=== PATIENT | male | born 1980 | race Caucasian/White ===

== ENCOUNTER → 2019-01-01 | Outpatient (CLI) | payer MEDICAID ==
--- NOTE | 2019-01-01 18:36 | REP ---
REASON: Pain. There is a fracture involving the base of the 5th metacarpal with palmar angulation. Electronically Signed by Zeferino Escudero DO 01/01/2019 06:59 P
== END ==
LOC: M RAD 17:43
PROVIDERS: ATTEND Physician Assistant Medical
DX: S62.346A Nondisplaced fracture of base of fifth metacarpal bone, right hand, initial encounter for closed fracture (principal); X58.XXXA Exposure to other specified factors, initial encounter; Y92.89 Other specified places as the place of occurrence of the external cause

== ENCOUNTER → 2019-03-07 | Outpatient (REF) | payer OTHER, MEDICAID ==
[2019-03-07 13:34] LABS: BASO # 0.1 10^3/uL (0.0-0.2); BASO % 0.8 % (0.0-1.0); EOS # 0.2 10^3/uL (0.0-0.5); EOS % 2.6 % (0.0-3.0); HEMATOCRIT 49.3 % (42.0-52.0); HEMOGLOBIN 16.6 g/dl (13.5-17.5); LYMPH # 2.5 10^3/uL (1.5-5.0); MEAN CORPUSCULAR HEMOGLOBIN 31.7 pg (27.0-33.0); MEAN CORPUSCULAR HGB CONC 33.7 g/dl (32.0-36.5); MEAN CORPUSCULAR VOLUME 94.1 fl (80.0-96.0); MONO # 0.6 10^3/uL (0.0-0.8); MONO % 8.7 % (0.0-5.0); NEUTROPHILS # 3.3 10^3/uL (1.5-8.5); NEUTROPHILS % 49.9 % (36.0-66.0); PLATELET COUNT, AUTOMATED 218 10^3/uL (150-450); RED BLOOD COUNT 5.24 10^6/uL (4.30-6.10); WHITE BLOOD COUNT 6.6 10^3/uL (4.0-10.0)
[2019-03-07 14:02] LABS: ALBUMIN 3.8 GM/DL (3.2-5.2); ALT/SGPT 23 U/L (12-78); BILIRUBIN,TOTAL 0.3 MG/DL (0.2-1.0); BLOOD UREA NITROGEN 11 MG/DL (7-18); CALCIUM LEVEL 8.9 MG/DL (8.5-10.1); CARBON DIOXIDE LEVEL 28 MEQ/L (21-32); CHLORIDE LEVEL 104 MEQ/L (98-107); CHOLESTEROL LEVEL 161 MG/DL (<200); CHOLESTEROL RISK RATIO 3.096 (<5); CREATININE FOR GFR 1.06 MG/DL (0.70-1.30); FREE T4 1.11 NG/DL (0.76-1.46); GLOMERULAR FILTRATION RATE > 60.0 (>60); GLUCOSE, FASTING 97 MG/DL (70-100); HDL CHOLESTEROL 52 MG/DL (>40); LDL CHOLESTEROL 91 MG/DL (<100); NON-HDL-C 109 MG/DL; POTASSIUM SERUM 4.2 MEQ/L (3.5-5.1); SODIUM LEVEL 139 MEQ/L (136-145); TOTAL 25(OH) VITAMIN D 22.1 NG/ML (30.0-100.0); TOTAL PROTEIN 6.9 GM/DL (6.4-8.2); TRIGLYCERIDES LEVEL 91 MG/DL (<150)
[2019-03-07 15:17] LABS: HEMOGLOBIN A1c 6.1 %
== END ==
LOC: M LAB REF 13:19
PROVIDERS: ATTEND Nurse Practitioner Family
DX: Z00.00 Encounter for general adult medical examination without abnormal findings (principal); Z13.9 Encounter for screening, unspecified; F41.1 Generalized anxiety disorder; F19.11 Other psychoactive substance abuse, in remission; F43.12 Post-traumatic stress disorder, chronic; S62.314D Displaced fracture of base of fourth metacarpal bone, right hand, subsequent encounter for fracture with routine healing

== ENCOUNTER → 2019-06-06 | Outpatient (REF) | payer OTHER, MEDICAID ==
[2019-06-06 13:12] LABS: HEMOGLOBIN A1c 6.1 %
[2019-06-07 14:15] LABS: TESTOSTERONE FREE (DIRECT) 17.1 pg/mL (8.7-25.1)
== END ==
LOC: M LAB REF 11:59
PROVIDERS: ATTEND Nurse Practitioner Family
DX: Z13.9 Encounter for screening, unspecified (principal)